=== PATIENT | female | born 1965 | race Caucasian/White ===

== ENCOUNTER 2017-01-03 17:18 | Emergency (ER) | payer OTHER ==
[2017-01-03] MEDS ORDERED: Albuterol 2.5 MG/3 ML NEB.SOL* (0.083%) INH ONE (18:11)
--- NOTE | 2017-01-03 18:25 | UC ---
Respiratory Complaint HPI - HPI Summary HPI Summary: Nasal congestion, cough, painful/tight breathing starting about a week ago. Is feeling worse, had fever of 104F yesterday. - History of Current Complaint Chief Complaint: UCRespiratory Stated Complaint: COUGH CONGESTION FEVER Time Seen by Provider: 01/03/17 18:01 Hx Obtained From: Patient Hx Last Menstrual Period: 08/16/15 ?: No Onset/Duration: Gradual Onset, Lasting Days Timing: Constant Severity Initially: Mild Severity Currently: Moderate Character: Cough: Nonproductive Aggravating Factors: Deep Breaths, Recumbent Position Alleviating Factors: Upright Position Associated Signs And Symptoms: Positive: Dyspnea, Fever, Chills, Wheezing, URI, Nasal Congestion - Allergies/Home Medications Allergies/Adverse Reactions: Allergies Allergy/AdvReac Type Severity Reaction Status Date / Time Hydrocodone [From Vicodin] Allergy Hives Verified 11/02/16 09:53 Oxycodone [From Percocet] Allergy Hives Verified 11/02/16 09:53 Gabapentin AdvReac Dizziness Verified 11/02/16 09:53 PMH/Surg Hx/FS Hx/Imm Hx Previously Healthy: Yes - Surgical History Surgical History: Yes Surgery Procedure, Year, and Place: c-sectionx2. tonsilectomy - Family History Known Family History: Positive: Hypertension - Social History Lives: With Family Alcohol Use: None Substance Use Type: None Substance Use Comment - Amount & Last Used: tylenol #4 and soma Smoking Status (MU): Former Smoker Type: Cigarettes When Did the Patient Quit Smoking/Using Tobacco: 2006 Household Exposure Type: Cigarettes Review of Systems Constitutional: Fever, Chills, Fatigue Skin: Negative Eyes: Negative ENT: Sore Throat, Nasal Discharge Respiratory: Shortness Of Breath, Cough Cardiovascular: Negative Gastrointestinal: Negative Genitourinary: Negative Motor: Negative Neurovascular: Negative Musculoskeletal: Negative Neurological: Negative Psychological: Negative All Other Systems Reviewed And Are Negative: Yes Physical Exam Triage Information Reviewed: Yes Appearance: No Pain Distress, Obese Vital Signs: Initial Vital Signs Temp 97.9 F 01/03/17 17:26 Pulse 111 01/03/17 17:26 Resp 22 01/03/17 17:26 BP 183/90 01/03/17 17:26 Pulse Ox 99 01/03/17 17:26 Vital Signs Reviewed: Yes Eye Exam: Normal Eyes: Positive: Conjunctiva Clear ENT: Positive: Pharynx normal, Nasal congestion, TMs normal. Negative: TM bulging, Tonsillar swelling, Tonsillar exudate Dental Exam: Normal Neck exam: Normal Neck: Positive: Supple, Nontender, No Lymphadenopathy Respiratory Exam: Other - harsh cough Respiratory: Positive: Accessory muscle use, Wheezing, Expiration Cardiovascular: Positive: No Murmur, Tachycardia Musculoskeletal Exam: Normal Neurological Exam: Normal Neurological: Positive: Alert Psychological Exam: Normal Skin Exam: Normal UC Diagnostic Evaluation - Laboratory O2 Sat by Pulse Oximetry: 99 Re-Evaluation - Re-Evaluation First Eval Re-Evaluation Time: 19:00 Change: Improved - markedly improved air movement, no wheezing in chest Respiratory Course/Dx - Differential Dx/Diagnosis Provider Diagnoses: acute bronchitis. elevated blood pressure due to discomfort Discharge - Discharge Plan Condition: Stable Disposition: HOME
--- NOTE | 2017-01-03 19:00 | RAD ---
INDICATION: Cough. Fever. COMPARISON: None TECHNIQUE: PA and lateral dual-energy views were obtained. FINDINGS: Bones/Soft Tissues: There are no acute bony findings. Cardiomediastinal: The cardiomediastinal silhouette is normal. Lungs: There are no infiltrates. Pleura: There are no pleural effusions. Other: None IMPRESSION: NO ACTIVE DISEASE
[2017-01-03 19:27] VITALS: BP 167/79
== END 2017-01-03 19:24 | disposition home or self-care (01) ==
LOC: UCEAST 17:18
DX: J20.9 Acute bronchitis, unspecified (principal); R03.0 Elevated blood-pressure reading, without diagnosis of hypertension; Z88.5 Allergy status to narcotic agent; Z87.891 Personal history of nicotine dependence
CPT/HCPCS: 71020; 99212; G0463

== ENCOUNTER 2018-07-11 07:47 | Emergency (ER) | payer OTHER ==
[2018-07-11 08:01] VITALS: BP 161/80
--- NOTE | 2018-07-11 08:50 | UC ---
General HPI - HPI Summary HPI Summary: This is a 53 year old female with a chief complaint of nausea/vomiting and temperature beginning 7 hours ago. PAIN INTENSITY NOW: slight abdominal discomfort COURSE: same for 7 hours; no vomiting for 2 hours QUALITY:mild, crampy LOCATION: mid and upper abdomin MADE WORSE BY: food, drink RELIEVED BY: nothing Note: Nurses note: pt states she woke up this am at 0200 with nausea and began to vomit. pt states she has been vomiting every hour this am. pt has been drinking immediatly after vomiting. pt states she had a temp of 102. pt also c/o miramontes to the front of head and the top back of her head. [ End ] - History of Current Complaint Chief Complaint: UCRespiratory Stated Complaint: ELEVATED TEMP Time Seen by Provider: 07/11/18 08:48 Hx Last Menstrual Period: 08/16/15 Pain Intensity: 7 - Allergy/Home Medications Allergies/Adverse Reactions: Allergies Allergy/AdvReac Type Severity Reaction Status Date / Time gabapentin Allergy Dizziness Verified 07/11/18 08:01 hydrocodone Allergy Hives Verified 07/11/18 08:01 oxycodone Allergy Hives Verified 07/11/18 08:01 Home Medications: Home Medications Cholecalciferol TAB* [Vitamin D TAB*] 1,000 unit PO DAILY 07/11/18 [History Confirmed 07/11/18] Ferrous Gluconate [Iron 27] 240 mg PO 07/11/18 [History] Multivitamin [Multivitamins] 1 cap PO 07/11/18 [History] PMH/Surg Hx/FS Hx/Imm Hx - Additional Past Medical History Additional PMH: VISIT HISTORY: chronic pain, back pain; migraine; a fib MEDICATIONS: no antihypertensive meds Family history significant for: -cardiovascular disease: HTN SMOKING: neg ALCOHOL: neg EMPLOYMENT: homemaker Previously Healthy: Yes - Surgical History Surgical History: Yes Surgery Procedure, Year, and Place: c-sectionx2. tonsilectomy - Family History Known Family History: Positive: Hypertension - Social History Alcohol Use: None Substance Use Type: None Substance Use Comment - Amount & Last Used: tylenol #4 and soma Smoking Status (MU): Former Smoker Type: Cigarettes When Did the Patient Quit Smoking/Using Tobacco: 2005 Household Exposure Type: Cigarettes Review of Systems All Other Systems Reviewed And Are Negative: Yes Constitutional: Positive: Negative Skin: Positive: Negative Eyes: Positive: Negative ENT: Positive: Negative Respiratory: Positive: Negative Cardiovascular: Positive: Negative Gastrointestinal: Positive: Vomiting, Nausea Genitourinary: Positive: Negative Motor: Positive: Negative Neurovascular: Positive: Negative Musculoskeletal: Positive: Negative Neurological: Positive: Negative Psychological: Positive: Negative Is Patient Immunocompromised?: No Physical Exam - Summary Physical Exam Summary: Appearance: The patient is well-appearing, is in no pain or distress, and is well-nourished. Eyes: Conjunctiva are clear. Pupils are equal and reactive to light and accommodation. Extra ocular muscle movement is intact. ENT: The hearing is grossly normal, the pharynx is normal, and the TMs are normal. There is no muffled or hoarse voice. No stridor. Neck: The neck is supple and there is no lymphadenopathy. Respiratory: The chest is nontender to palpation and without crepitus. The lungs are clear, there are normal breath sounds, and there is no respiratory distress. No wheezes, rales or rhonchi. Cardiovascular: Heart sounds reveal a regular rate and rhythm. There are no clicks, rubs or murmurs. There are no carotid bruits or thrills. Circulation is grossly intact. Abdomen: The abdomen is soft and nontender. There is no organomegaly. Bowel sounds are present and within normal limits. No point tenderness at McBurneys point. Musculoskeletal: Strength is intact. The patient moves all extremities. Neurological: The patient is alert. Motor and sensory are examination grossly intact. Speech is normal. Psychological: The patient displays age appropriate behavior Skin: Negative for rashes. Triage Information Reviewed: Yes Vital Signs: Initial Vital Signs Temp 99.3 F 07/11/18 07:55 Pulse 119 07/11/18 07:55 Resp 18 07/11/18 07:55 BP 161/80 07/11/18 07:55 Pulse Ox 97 07/11/18 07:55 Course/Dx - Course Course Of Treatment: 53 yo with frequent/nausea vomiting up to 2 hours ago. No N/V in CCC. No abdominal pain. Examination reveals no peritoneal signs. Maybe the beginning of gastroenteritis with diarrhea developing. Patient will use Zofran as needed and hydrate. She is probably mildly dehydrated with pulse of 119. MEDICATIONS REVIEWED: Medications have been included in the original chart and reviewed. HYPERTENSION REVIEWED: - Differential Dx - Multi-Symptom Differential Diagnoses: Other - gastroenteritis - Diagnoses Provider Diagnosis: Gastroenteritis Discharge - Sign-Out/Discharge Documenting (check all that apply): Patient Departure All imaging exams completed and their final reports reviewed: No Studies - Discharge Plan Condition: Stable Disposition: HOME Prescriptions: Ondansetron ODT TAB* [Zofran Odt TAB*] 4 mg PO Q6H #10 tab.odt MDD 3 Patient Education Materials: Acute Nausea and Vomiting (ED) Referrals: No Primary Care Phys,NOPCP [Primary Care Provider] - Additional Instructions: WE DISCUSSED: PLEASE SEEK CARE AT THE EMERGENCY DEPARTMENT IF SYMPTOMS WORSEN OR IF NEW SYMPTOMS DEVELOP. FOLLOW UP WITH YOUR PRIMARY CARE PHYSICIAN or HERE IF CONDITION CONTINUES BEYOND 3 DAYS WITHOUT IMPROVEMENT. YOUR DIAGNOSIS IS: NAUSEA AND VOMITING; POSSIBLE GASTROENTERITIS YOUR PRESCRIPTION RECOMMENDATION IS: ZOFRAN TO HELP WITH THE NAUSEA; BENADRYL, OVER THE COUNTER, MAY ALSO HELP OTHER INSTRUCTIONS: Hydrate with flat soda or dilute gatorade; rest; simplify diet to tea, toast, no dairy, meat, fried foods for 24 hours. Rest your stomach. Hypertension Discharge Instructions: Your blood pressure reading today was elevated, indicating HYPERTENSION. Follow- up with your primary care provider within 4 weeks for blood pressure check and appropriate recommendations and treatment, as needed. FOR PAIN AND/OR SLEEP: For pain: Ibuprofen (Motrin and other brand names) 400-600mg PLUS acetaminophen (Tylenol and other brand names) 500mg - 1000mg every 8 hours. Maximum is 3 doses a day. If this dosage is required for more than 5 days, you should re-check with your doctor. The combination of these two over-the- counter medications can be more effective than each one taken alone. Please check with the pharmacist if you have questions about your allergies to these medications. To help you sleep: If you feel as if you want to calm down and get sleepy, over the counter diphenhydramine (Benadryl and other brand names), 25 mg up to every 8 hours may be useful. Please check with the pharmacist if you have questions about your allergies to these medications. - Billing Disposition and Condition Condition: STABLE Disposition: Home
== END 2018-07-11 09:30 | disposition home or self-care (01) ==
LOC: UCEAST 07:47
DX: K52.9 Noninfective gastroenteritis and colitis, unspecified (principal); Z88.5 Allergy status to narcotic agent; Z88.8 Allergy status to other drugs, medicaments and biological substances; Z87.891 Personal history of nicotine dependence
CPT/HCPCS: 99212; G0463

== ENCOUNTER 2018-07-12 15:58 | Emergency (ER) | payer OTHER ==
[2018-07-12 16:06] VITALS: BP 146/83
--- NOTE | 2018-07-12 16:47 | UC ---
Respiratory Complaint HPI - HPI Summary HPI Summary: 53-year-old woman comes to clinic today with a chief complaint of coughing up blood. Yesterday the patient had nausea and vomiting all day and through the night. When she woke up this morning she had some upper abdominal lower chest discomfort and when she coughed up some sputum he was tinged with blood. Denies any sinusitis symptoms. Did not see any blood in her emesis yesterday. She has not seen any blood in her stool. He says the nausea and vomiting yesterday she has felt well. No upper respiratory tract infection symptoms. No history of deep venous thrombosis or pulmonary embolus. She is not a smoker. No fevers or chills. - History of Current Complaint Chief Complaint: UCRespiratory Stated Complaint: RIB PAIN Time Seen by Provider: 07/12/18 16:31 Hx Last Menstrual Period: 2 wks ago Pain Intensity: 0 - Allergies/Home Medications Allergies/Adverse Reactions: Allergies Allergy/AdvReac Type Severity Reaction Status Date / Time gabapentin Allergy Dizziness Verified 07/12/18 16:06 hydrocodone Allergy Hives Verified 07/12/18 16:06 oxycodone Allergy Hives Verified 07/12/18 16:06 Home Medications: Home Medications Acetaminop/Codeine 30 MG TAB* [Tylenol/Codeine 30 MG TAB*] 2 tab PO ONCE [History Confirmed 07/12/18] PMH/Surg Hx/FS Hx/Imm Hx Previously Healthy: Yes - CHRONIC BACK PAIN - Surgical History Surgical History: Yes Surgery Procedure, Year, and Place: c-sectionx2. tonsilectomy - Family History Known Family History: Positive: Hypertension - Social History Alcohol Use: None Substance Use Type: Prescribed Substance Use Comment - Amount & Last Used: tylenol #4 and soma Smoking Status (MU): Former Smoker Type: Cigarettes When Did the Patient Quit Smoking/Using Tobacco: 2005 Household Exposure Type: Cigarettes Review of Systems All Other Systems Reviewed And Are Negative: Yes Constitutional: Positive: Negative Skin: Positive: Negative Eyes: Positive: Negative ENT: Positive: Negative Respiratory: Positive: Other - SEE HPI Cardiovascular: Positive: Chest Pain - SEE HPI Gastrointestinal: Positive: Vomiting - SEE HPI Motor: Positive: Negative Neurovascular: Positive: Negative Musculoskeletal: Positive: Negative Neurological: Positive: Negative Psychological: Positive: Negative Is Patient Immunocompromised?: No Physical Exam Triage Information Reviewed: Yes Appearance: Well-Appearing, No Pain Distress, Well-Nourished Vital Signs: Initial Vital Signs Temp 98.3 F 07/12/18 16:03 Pulse 94 07/12/18 16:03 Resp 16 07/12/18 16:03 BP 146/83 07/12/18 16:03 Pulse Ox 99 07/12/18 16:03 Vital Signs Reviewed: Yes Eye Exam: Normal Eyes: Positive: Conjunctiva Clear ENT: Positive: Pharynx normal Neck exam: Normal Neck: Positive: Supple Respiratory: Positive: Lungs clear, Normal breath sounds, No respiratory distress Cardiovascular: Positive: RRR Abdomen Description: Positive: Nontender, Soft Musculoskeletal Exam: Normal Musculoskeletal: Positive: Strength Intact, ROM Intact, No Edema, Other: - NO CALF TENDERNESS Neurological Exam: Normal Neurological: Positive: Alert, Muscle Tone Normal Psychological Exam: Normal Psychological: Positive: Age Appropriate Behavior Skin Exam: Normal UC Diagnostic Evaluation - Laboratory O2 Sat by Pulse Oximetry: 99 Respiratory Course/Dx - Course Course Of Treatment: Order Information: CHEST PA LAT 2 VWS. Accession Number: [id number]. CPT: 11152. INDICATION: Hemoptysis. COMPARISON: Comparison is made with prior study from January 03, 2017. TECHNIQUE: Dual-energy PA and lateral views of the chest were obtained. FINDINGS: The heart is within normal limits in size. Mediastinal and hilar contours. appear within normal limits. The lungs are clear. No pleural effusion is present. IMPRESSION: NO EVIDENCE FOR ACTIVE CARDIOPULMONARY DISEASE. . <Electronically signed by Pancho Reid MD in OV> 07/12/18 3413. I discussed the reports with the patient and her partner. At this time we'll treat with Roel azithromycin for probable bronchitis causing the hemoptysis. Given the patient had a little vomiting yesterday another highly probable cause is a tear in the upper throat. Patient has not seen any blood in her stools. She also has been taking ibuprofen and I recommended she stop taking ibuprofen for now. She's not short of breath at rest. She has an appointment with a new doctor on July 26, 2018 and she can follow-up at that time for this condition. I also let her know if she has any shortness of breath or she has any increased hemoptysis she needs to get evaluated again right away in the emergency department. - Differential Dx/Diagnosis Provider Diagnosis: Hemoptysis Discharge - Sign-Out/Discharge Documenting (check all that apply): Patient Departure All imaging exams completed and their final reports reviewed: Yes - Discharge Plan Condition: Stable Disposition: HOME Prescriptions: Azithromyxin CHIN (NF) [Z-Chin (Zithromax) 250 mg tabs #6] 2 tab PO .TODAY, THEN 1 DAILY #6 tab Patient Education Materials: Hemoptysis (ED) Referrals: [facility] [place] [facility] [Outside] [facility] [Provider Group] Additional Instructions: FOLLOW UP WITH YOUR DOCTOR ON 07/26/18 SCHEDULED. GO TO THE EMERGENCY DEPARTMENT FOR ANY WORSENING OF YOUR CONDITION; PAIN, SHORTNESS OF BREATH, CONTINUED OR MORE BLOOD IN YOUR SPUTUM, YOU FEEL ILL OR QUESTIONS OR CONCERNS. - Billing Disposition and Condition Condition: STABLE Disposition: Home
== END 2018-07-12 17:35 | disposition home or self-care (01) ==
LOC: UCEAST 15:58
DX: R04.2 Hemoptysis (principal); Z88.5 Allergy status to narcotic agent; Z88.8 Allergy status to other drugs, medicaments and biological substances; Z87.891 Personal history of nicotine dependence
CPT/HCPCS: 71046; 99212; G0463

== ENCOUNTER 2018-07-15 17:05 | Emergency (ER) | payer OTHER ==
[2018-07-15] MEDS ORDERED: amLODIPine TAB* 5 MG PO ONE (18:00)
[2018-07-15] MEDS ORDERED: Hydrochlorothiazide TAB* 25 MG PO ONE (18:00)
[2018-07-15 18:26] LABS: ABS Basophils 0 10^3/ul (0-0.2); ABS Eosinophils 0.1 10^3/ul (0-0.6); ABS Lymphocytes 1.2 10^3/ul (1.0-4.8); ABS Monocytes 0.3 10^3/ul (0-0.8); ABS Nucleated RBC 0 10^3/ul; Eosinophil % 1.7 %; Hematocrit 36 % (35-47); Hemoglobin 11.6 g/dl (12.0-16.0); Lymphocyte % 25.7 %; Mean Corpuscular HGB Conc 32 g/dl (31-36); Mean Corpuscular Hemoglobin 26 pg (27-31); Mean Corpuscular Volume 79 fL (80-97); Mean Platelet Volume 8.8 fL (7.4-10.4); Nucleated Red Blood Cells % 0; Platelet Count 134 10^3/ul (150-450); Red Cell Distribution Width 18 % (10.5-15); White Blood Count 4.6 10^3/ul (3.5-10.8)
[2018-07-15 18:42] LABS: EGFR Non-African American 87.2 (>60)
--- NOTE | 2018-07-15 19:19 | ED ---
Lower Extremity - HPI Summary HPI Summary: 53 year old female presents with sudden onset right calf pain that is radiating up her leg and buttock. Patient states the pain feels "like she pulled a muscle. " Patient has a family history of blood clots and is concerned she may have a blood clot. Patient states she took ibuprofen and Tylenol with codeine without relief. Patient denies CP, SOB, N/V, dizziness, abdominal pain, diarrhea, constipation, and diarrhea. Patient has a history of high blood pressure, is not any any medications to treat it. Does not have a PCP. Denies cigarette, alcohol, and recreational drug use. no urinary symptoms. no loss of bowel or bladder or saddle anasethesia. She admits to some right side back pain. - History of Current Complaint Chief Complaint: EDExtremityLower Stated Complaint: RT LEG PAIN Time Seen by Provider: 07/15/18 17:44 Hx Obtained From: Patient Hx Last Menstrual Period: 2 wks ago Onset/Duration: Hours Severity Initially: Moderate Severity Currently: Severe Pain Intensity: 9 Pain Scale Used: 0-10 Numeric Location: Radiates To - right calf with radiation up right leg and buttock Character Of Pain: Dull, Aching Associated Signs And Symptoms: Positive: Negative Aggravating Factor(s): Nothing Alleviating Factor(s): Rest Able to Bear Weight: Yes - Risk Factors Gout Risk Factors: Age Over 40, Hypertension, Obesity DVT Risk Factors: Family Hx of Clotting Disorder Septic Arthritis Risk Factor: Negative - Allergies/Home Medications Allergies/Adverse Reactions: Allergies Allergy/AdvReac Type Severity Reaction Status Date / Time gabapentin Allergy Dizziness Verified 07/15/18 17:11 hydrocodone Allergy Hives Verified 07/15/18 17:11 oxycodone Allergy Hives Verified 07/15/18 17:11 PMH/Surg Hx/FS Hx/Imm Hx Previously Healthy: Yes Endocrine/Hematology History: Denies: Hx Diabetes, Hx Thyroid Disease Cardiovascular History: Reports: Hx Hypertension Respiratory History: Reports: Other Respiratory Problems/Disorders Denies: Hx Asthma, Hx Chronic Obstructive Pulmonary Disease (COPD) GI History: Denies: Hx Ulcer Musculoskeletal History: Reports: Hx Back Problems Neurological History: Reports: Hx Headaches - Cancer History Hx Chemotherapy: No Hx Radiation Therapy: No - Surgical History Surgery Procedure, Year, and Place: c-sectionx2. tonsilectomy Infectious Disease History: No Infectious Disease History: Denies: Hx Clostridium Difficile, Hx Hepatitis, Hx Human Immunodeficiency Virus (HIV), Hx of Known/Suspected MRSA, Hx Shingles, Hx Tuberculosis, Hx Known/ Suspected VRE, Hx Known/Suspected VRSA, History Other Infectious Disease, Traveled Outside the [place] in Last 30 Days - Family History Known Family History: Positive: Hypertension - Social History Alcohol Use: None Substance Use Type: Reports: Prescribed Substance Use Comment - Amount & Last Used: tylenol #4 and soma Hx Tobacco Use: No Smoking Status (MU): Former Smoker Type: Cigarettes Review of Systems Negative: Fever, Chills, Fatigue, Skin Diaphoresis Negative: Palpitations, Chest Pain Negative: Shortness Of Breath Negative: Abdominal Pain, Vomiting, Diarrhea, Nausea Positive: Myalgia - pain in right leg Negative: Headache, Weakness, Paresthesia, Numbness All Other Systems Reviewed And Are Negative: Yes Physical Exam Triage Information Reviewed: Yes Vital Signs On Initial Exam: Initial Vitals Temp Pulse Resp BP Pulse Ox 97.7 F 107 16 202/113 99 07/15/18 17:08 07/15/18 17:08 07/15/18 17:08 07/15/18 17:08 07/15/18 17:08 Vital Signs Reviewed: Yes Appearance: Positive: Well-Appearing Skin: Positive: Warm, Dry Head/Face: Positive: Normal Head/Face Inspection Eyes: Positive: Normal, Conjunctiva Clear ENT: Positive: Pharynx normal Respiratory/Lung Sounds: Positive: Clear to Auscultation, Breath Sounds Present Cardiovascular: Positive: Normal, RRR Musculoskeletal: Positive: Strength/ROM Intact - right leg, Other - nontender SI joint, no midline tenderness back, good pulses, sensation grossly intact Neurological: Positive: Reflexes Intact - patella Psychiatric: Positive: Normal Diagnostics - Vital Signs Vital Signs Temp Pulse Resp BP Pulse Ox 07/15/18 17:08 97.7 F 107 16 202/113 99 - Laboratory Lab Results: Lab Results 07/15/18 07/15/18 Range/Units 18:04 18:04 WBC 4.6 (3.5-10.8) 10^3/ul RBC 4.50 (4.00-5.40) 10^6/ul Hgb 11.6 L (12.0-16.0) g/dl Hct 36 (35-47) % MCV 79 L (80-97) fL MCH 26 L (27-31) pg MCHC 32 (31-36) g/dl RDW 18 H (10.5-15) % Plt Count 134 L (150-450) 10^3/ul MPV 8.8 (7.4-10.4) fL Neut % (Auto) 65.4 % Lymph % (Auto) 25.7 % [place] % (Auto) 6.7 % Eos % (Auto) 1.7 % Baso % (Auto) 0.5 % Absolute Neuts (auto) 3.0 (1.5-7.7) 10^3/ul Absolute Lymphs (auto) 1.2 (1.0-4.8) 10^3/ul Absolute Monos (auto) 0.3 (0-0.8) 10^3/ul Absolute Eos (auto) 0.1 (0-0.6) 10^3/ul Absolute Basos (auto) 0 (0-0.2) 10^3/ul Absolute Nucleated RBC 0 10^3/ul Nucleated RBC % 0 Sodium 137 (135-145) mmol/L Potassium 3.7 (3.5-5.0) mmol/L Chloride 104 (101-111) mmol/L Carbon Dioxide 26 (22-32) mmol/L Anion Gap 7 (2-11) mmol/L BUN 11 (6-24) mg/dL Creatinine 0.70 (0.51-0.95) mg/dL Est GFR ( Amer) 105.5 (>60) Est GFR (Non-Af Amer) 87.2 (>60) BUN/Creatinine Ratio 15.7 (8-20) Glucose 95 (70-100) mg/dL Calcium 9.2 (8.6-10.3) mg/dL Magnesium 2.1 (1.9-2.7) mg/dL Total Bilirubin 0.30 (0.2-1.0) mg/dL AST 13 (13-39) U/L ALT 19 (7-52) U/L Alkaline Phosphatase 66 (34-104) U/L Total Protein 7.3 (6.4-8.9) g/dL Albumin 4.4 (3.2-5.2) g/dL Globulin 2.9 (2-4) g/dL Albumin/Globulin Ratio 1.5 (1-3) Result Diagrams: 12/09/18 18:04 07/15/18 18:04 Lab Statement: Any lab studies that have been ordered have been reviewed, and results considered in the medical decision making process. - Ultrasound No standard instances Ultrasound Interpretation Completed By: Radiologist Summary of Ultrasound Findings: no DVT Re-Evaluation - Re-Evaluation First Eval Re-Evaluation Time: 19:45 Change: Improved Comment: feeling better after blood pressure meds Lower Extremity Course/Dx - Course Course Of Treatment: 53 year old female presents with right calf pain and radiation up the leg and buttock. Patient has a family history of blood clots and is concerned she may have one. Denies swelling of leg, CP/SOB, and numbness or tingling. Patient has history of uncontrolled HTN, does not see a PCP but has an appointment on the . Patient was given a dose of HCTZ and amlodipine in ED. Venous ultrasound of the right leg was done and shows no thrombus. Patient given prescription for amlodipine for blood pressure control and a muscle relaxer for pain management. Patient instructed to follow up with PCP as scheduled for continued management. Patient demonstrates understanding and is agreeable to plan. - Diagnoses Differential Diagnosis/HQI/PQRI: Positive: DVT, Sprain, Strain Provider Diagnoses: Hypertension, Right leg pain Discharge - Sign-Out/Discharge Documenting (check all that apply): Patient Departure - Discharge Plan Condition: Good Disposition: HOME Prescriptions: amLODIPine TAB* [Norvasc 5 mg TAB*] 5 mg PO DAILY #20 tab Cyclobenzaprine TAB* [Flexeril 10 MG TAB*] 10 mg PO TID PRN #15 tab PRN Reason: Pain Patient Education Materials: Leg Pain (ED) Referrals: [facility] [place] [facility] [Outside] Additional Instructions: take amlodipine once a day Take muscle relaxers three times a day Use ibuprofen or Tylenol for pain every 6 hours ice/heat area, move as much as possible keep follow up with primary Return to ED if develop any new or worsening symptoms - Billing Disposition and Condition Condition: GOOD Disposition: Home
[2018-07-15] MEDS ORDERED: Cyclobenzaprine TAB* 10 MG PO ONE (19:44)
[2018-07-15 19:56] VITALS: BP 186/102
== END 2018-07-15 20:00 | disposition home or self-care (01) ==
LOC: ED 17:05
DX: M79.604 Pain in right leg (principal); I10 Essential (primary) hypertension; Z87.891 Personal history of nicotine dependence
CPT/HCPCS: 36415; 80053; 83735; 85025; 99282; A9270-GY

== ENCOUNTER 2018-09-01 07:36 | Emergency (ER) | payer OTHER ==
[2018-09-01 07:57] VITALS: BP 160/90
--- NOTE | 2018-09-01 07:58 | UC ---
General HPI - HPI Summary HPI Summary: 53 yo healthy female, comes to [facility] for refill of amlodipine and something for cholesterol. MD Note: Vital signs stable; HTN Nurses note: pt is here for a refill of amlodipine besylate 5mg 1 tab po q day. pt last time taking this med 8 days ago. pt is also asking for her colesterol medication that she does not remember at this time. I stop: Reference #: [id number] No frequent drugs listed. - History of Current Complaint Chief Complaint: UCMedRefill Stated Complaint: MED REFILL Time Seen by Provider: 09/01/18 07:47 Hx Last Menstrual Period: 07/28/18 Pain Intensity: 0 - Allergy/Home Medications Allergies/Adverse Reactions: Allergies Allergy/AdvReac Type Severity Reaction Status Date / Time gabapentin Allergy Dizziness Verified 07/15/18 17:11 hydrocodone Allergy Hives Verified 07/15/18 17:11 oxycodone Allergy Hives Verified 07/15/18 17:11 PMH/Surg Hx/FS Hx/Imm Hx - Additional Past Medical History Additional PMH: RELEVANT VISIT HISTORY: HTN MEDICATIONS: amlodipine CHRONIC CONDITIONS: Family history significant for: -cardiovascular disease: hypertension -renal disease SMOKING: none EMPLOYMENT: at home - Surgical History Surgical History: Yes Surgery Procedure, Year, and Place: c-sectionx2. tonsilectomy - Family History Known Family History: Positive: Hypertension - Social History Alcohol Use: None Substance Use Type: None Substance Use Comment - Amount & Last Used: tylenol #4 and soma Smoking Status (MU): Former Smoker Type: Cigarettes When Did the Patient Quit Smoking/Using Tobacco: 2005 Household Exposure Type: Cigarettes Review of Systems All Other Systems Reviewed And Are Negative: Yes Constitutional: Positive: Negative Skin: Positive: Negative Eyes: Positive: Negative ENT: Positive: Negative Respiratory: Positive: Negative Cardiovascular: Positive: Negative Gastrointestinal: Positive: Negative Genitourinary: Positive: Negative Motor: Positive: Negative Neurovascular: Positive: Negative Musculoskeletal: Positive: Negative Neurological: Positive: Negative Psychological: Positive: Negative Is Patient Immunocompromised?: No Physical Exam - Summary Physical Exam Summary: Appearance: The patient is well-appearing, is in no pain or distress, and is well-nourished. Eyes: Conjunctiva are clear. Pupils are equal and reactive to light and accommodation. Extraocular muscle movement is intact. ENT: The hearing is grossly normal, the pharynx is normal, and the TMs are normal. There is no muffled or hoarse voice. No stridor. Neck: The neck is supple and there is no lymphadenopathy. Respiratory: The chest is non-tender to palpation and without crepitus. The lungs are clear, there are normal breath sounds, and there is no respiratory distress. No wheezes, rales or rhonchi. Cardiovascular: Heart sounds reveal a regular rate and rhythm. There are no clicks, rubs or murmurs. There are no carotid bruits or thrills. Circulation is grossly intact. Abdomen: The abdomen is soft and non-tender. There is no organomegaly. Bowel sounds are present and within normal limits. No point tenderness at McBurneys point. Musculoskeletal: Strength is within normal limits for age. The patient moves all extremities spontaneously. Neurological: The patient is alert. Motor and sensory examination grossly intact. Speech is normal. Psychological: The patient displays age appropriate behavior. Oriented to person , place and time. Skin: Negative for rashes. Triage Information Reviewed: Yes Vital Signs: Initial Vital Signs Temp 97.4 F 09/01/18 07:40 Pulse 102 09/01/18 07:40 Resp 18 09/01/18 07:40 BP 00/00 09/01/18 07:40 Pulse Ox 98 09/01/18 07:40 Course/Dx - Course Course Of Treatment: 53 yo healthy patient with chronic hypertension and BP of 160/90, ran out of amlodipine 8 days ago. Patient will find primary care, check cholesterol, and restart amlodipine, 5mg, once a day. We discussed adverse effects. 60 pills given. MEDICATIONS REVIEWED: Medications have been included in the original chart and reviewed. HYPERTENSION STATUS/MEDICATIONS REVIEWED and DISCUSSED WITH PATIENT. - Differential Dx - Multi-Symptom Differential Diagnoses: Other - hypertension - Diagnoses Provider Diagnosis: Hypertension Discharge - Sign-Out/Discharge Documenting (check all that apply): Patient Departure All imaging exams completed and their final reports reviewed: No Studies - Discharge Plan Condition: Stable Disposition: HOME Prescriptions: Amlodipine Besylate [Norvasc] 5 mg PO DAILY #60 tablet MDD one Patient Education Materials: Chronic Hypertension (DC) Referrals: No Primary Care Phys,NOPCP [Primary Care Provider] - Additional Instructions: WE DISCUSSED: Follow up with your new care provider. Evaluate and treat cholesterol at that time. PLEASE SEEK CARE AT THE EMERGENCY DEPARTMENT IF SYMPTOMS WORSEN OR IF NEW SYMPTOMS DEVELOP. YOUR DIAGNOSIS IS: chronic hypertension I have given you AMLODIPINE 5 MG A DAY # 60. - Billing Disposition and Condition Condition: STABLE Disposition: Home
== END 2018-09-01 08:35 | disposition home or self-care (01) ==
LOC: UCEAST 07:36
DX: I10 Essential (primary) hypertension (principal); Z76.0 Encounter for issue of repeat prescription; Z88.8 Allergy status to other drugs, medicaments and biological substances; Z88.5 Allergy status to narcotic agent; Z82.49 Family history of ischemic heart disease and other diseases of the circulatory system; Z87.891 Personal history of nicotine dependence
CPT/HCPCS: 99212; G0463

== ENCOUNTER 2018-09-24 10:35 | Emergency (ER) | payer OTHER ==
[2018-09-24 11:36] VITALS: BP 191/110
--- NOTE | 2018-09-24 12:17 | ED ---
Respiratory - HPI Summary HPI Summary: 53 year old female presents with fever and cough for the past 4 days. she admits to sinus congestion and occasionally sore throat. she has not tried any thing for her symptoms. she admits to occasionally sob. no chest pain. no pain or swelling in her calf muscles. is not a smoker. has history of HTN And has not taken meds in two days due to nausea. no abdominal pain, vomiting or diarrhea. no history of asthma or COPD. - History of Current Complaint Chief Complaint: UCGeneralIllness Stated Complaint: FEVER,COUGH Time Seen by Provider: 09/24/18 12:02 Pain Intensity: 8 - Allergy/Home Medications Allergies/Adverse Reactions: Allergies Allergy/AdvReac Type Severity Reaction Status Date / Time gabapentin Allergy Dizziness Verified 09/24/18 11:36 hydrocodone Allergy Hives Verified 09/24/18 11:36 oxycodone Allergy Hives Verified 09/24/18 11:36 PMH/Surg Hx/FS Hx/Imm Hx Endocrine/Hematology History: Denies: Hx Diabetes, Hx Thyroid Disease Cardiovascular History: Reports: Hx Hypertension Respiratory History: Reports: Other Respiratory Problems/Disorders Denies: Hx Asthma, Hx Chronic Obstructive Pulmonary Disease (COPD) GI History: Denies: Hx Ulcer Musculoskeletal History: Reports: Hx Back Problems Neurological History: Reports: Hx Headaches - Cancer History Hx Chemotherapy: No Hx Radiation Therapy: No - Surgical History Surgery Procedure, Year, and Place: c-sectionx2. tonsilectomy Infectious Disease History: No Infectious Disease History: Denies: Hx Clostridium Difficile, Hx Hepatitis, Hx Human Immunodeficiency Virus (HIV), Hx of Known/Suspected MRSA, Hx Shingles, Hx Tuberculosis, Hx Known/ Suspected VRE, Hx Known/Suspected VRSA, History Other Infectious Disease, Traveled Outside the [place] in Last 30 Days - Family History Known Family History: Positive: Hypertension - Social History Alcohol Use: None Substance Use Type: Reports: None Substance Use Comment - Amount & Last Used: tylenol #4 and soma Hx Tobacco Use: No Smoking Status (MU): Former Smoker Type: Cigarettes Review of Systems Positive: Fever, Chills Positive: Nasal Discharge Negative: Chest Pain Positive: Shortness Of Breath, Cough All Other Systems Reviewed And Are Negative: Yes Physical Exam Triage Information Reviewed: Yes Vital Signs On Initial Exam: Initial Vitals Temp Pulse Resp BP Pulse Ox 100.1 F 112 18 191/110 100 09/24/18 11:32 09/24/18 11:32 09/24/18 11:32 09/24/18 11:32 09/24/18 11:32 Vital Signs Reviewed: Yes Appearance: Positive: Well-Appearing Skin: Positive: Warm, Dry Head/Face: Positive: Normal Head/Face Inspection Eyes: Positive: Normal, EOMI, QUIN, Conjunctiva Clear ENT: Positive: Normal ENT inspection, Pharynx normal, Nasal drainage, TMs normal Neck: Positive: Supple, Nontender, No Lymphadenopathy Respiratory/Lung Sounds: Positive: Clear to Auscultation, Breath Sounds Present Cardiovascular: Positive: Normal, RRR Abdomen Description: Positive: Nontender, Soft Bowel Sounds: Positive: Present Musculoskeletal: Positive: Normal Neurological: Positive: Normal Psychiatric: Positive: Normal Diagnostics - Vital Signs Vital Signs Temp Pulse Resp BP Pulse Ox 09/24/18 11:32 100.1 F 112 18 191/110 100 - Laboratory Lab Statement: Any lab studies that have been ordered have been reviewed, and results considered in the medical decision making process. - Radiology chest Radiology Interpretation Completed By: Radiologist Summary of Radiographic Findings: nad Disposition - Course Course Of Treatment: 53 year old female presents with fever and cough for the past 4 days. she admits to sinus congestion and occasionally sore throat. she has not tried any thing for her symptoms. she admits to occasionally sob. no chest pain. no pain or swelling in her calf muscles. is not a smoker. has history of HTN And has not taken meds in two days due to nausea. no abdominal pain, vomiting or diarrhea. no history of asthma or COPD. on exam lungs CTA. pharynx normal. chest xray shows no pneumonia. will treat supportively with inhaler and tessalon. patient can follow up with primary about blood pressure as has dx of htn and has not been taking meds. encouraged that needs to take bp meds. patient understand and agrees with plan. - Differential Dx - Cardiopulmonary Differential Diagnoses - Cardiopulmonary: Bronchitis, Influenza, Lower Resp Infection - Diagnoses Provider Diagnoses: Upper respiratory infection, Hypertension Discharge - Sign-Out/Discharge Documenting (check all that apply): Patient Departure All imaging exams completed and their final reports reviewed: Yes - Discharge Plan Condition: Good Disposition: HOME Prescriptions: Albuterol HFA INHALER* [Ventolin HFA Inhaler*] 1 puff INH Q6H PRN #1 i PRN Reason: Cough Benzonatate CAP* [Tessalon 100 MG CAP*] 100 mg PO TID PRN #21 cap PRN Reason: Cough Patient Education Materials: Upper Respiratory Infection (ED) Referrals: [facility] [Outside] Additional Instructions: Use Tessalon three times a day for cough Use inhaler one puff every 4-6 hours for cough as needed Establish care with primary Follow up with primary care physician in 5 days Return to if develop any new or worsening symptoms - Billing Disposition and Condition Condition: GOOD Disposition: Home - Attestation Statements Provider Attestation: Per institutional requirements, I have reviewed the chart, however, I was not consulted specifically or made aware of this patient by the midlevel provider. I did not personally evaluate, interact with , or disposition this patient.
== END 2018-09-24 12:38 | disposition home or self-care (01) ==
LOC: UCEAST 10:35
DX: J06.9 Acute upper respiratory infection, unspecified (principal); I10 Essential (primary) hypertension; Z88.5 Allergy status to narcotic agent; Z88.8 Allergy status to other drugs, medicaments and biological substances; Z87.891 Personal history of nicotine dependence
CPT/HCPCS: 71046; 99212; G0463

== ENCOUNTER 2019-08-15 18:15 | Emergency (ER) | payer OTHER ==
--- OUTSIDE RECORDS SUMMARY | 2019-08-15 18:24 | XMS REPORT | Continuity of Care Document ---
:1965 External Reference #:[id number] Author Name Nusrat Schroeder MD (transmitted by agent of provider Darcy Aguilar) Address [address], [place] [address] Problems Description No Information Available Social History Type Date Description Comments Sex Unknown Tobacco Use Start: Unknown End: Unknown Patient is a former smoker quit 2004 Smoking Status Reviewed: 07/12/19 Patient is a former smoker quit 2004 Allergies, Adverse Reactions, Alerts Active Allergies Reaction Severity Comments Date Vicodin 06/27/2019 Darvocet 06/27/2019 Penicillin 06/27/2019 Inactive Allergies NKDA 06/26/2003 Medications Active Medications SIG Qnty Indications Ordering Date Provider Lisinopril 1 by mouth every 30tabs I10 Nusrat Schroeder, 07/12/2019 10mg day MD Tablets Blood Pressure Kit measure blood 1units I10 Orquidea Leach, 06/27/2019 pressure daily MD Kit Paroxetine HCL take one tab daily 60tabs F33.2 Orquidea Leach, 06/27/2019 10mg for 2 weeks and MD Tablets then 2 tab daily thereafter Ibuprofen 200 Unknown 200mg Tablets History Medications No Active Medications Unknown 06/27/2019 - 06/27/2019 Amlodipine Besylate 1 by mouth every 90tabs Nelly Camacho, 06/27/2019 - 5mg day DO 06/27/2019 Tablets Amlodipine Besylate take one tablet 60tabs I10 Orquidea Leach, 2018 - by mouth once MD 07/12/2019 10mg Tablets daily Immunizations Description No Information Available Vital Signs Date Vital Result Comment 07/12/2019 11:41am Height 66 inches 5'6" Weight 225.00 lb Heart Rate 98 /min BP Systolic 132 mmHg BP Diastolic 82 mmHg Body Temperature 97.8 F O2 % BldC Oximetry 98 % BMI (Body Mass Index) 36.3 kg/m2 06/27/2019 3:06pm Height 66 inches 5'6" Weight 222.38 lb Heart Rate 110 /min BP Systolic 179 mmHg 154/88 BP Diastolic 94 mmHg 154/88 Body Temperature 98.5 F O2 % BldC Oximetry 98 % BMI (Body Mass Index) 35.9 kg/m2 Results Description No Information Available Procedures Date Code Description Status 07/12/2019 05901 EKG Tracing & Interpretation Completed Medical Devices Description No Information Available Encounters Type Date Location Provider Dx Diagnosis Office Visit 06/27/2019 [facility] Internal Orquidea Leach, I10 Essential ( primary) 3:00p Medicine - Suite hypertension R 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, recurrent severe w/o psych features Assessments Date Code Description Provider 07/12/2019 R60.9 Edema, unspecified Nusrat Schroeder MD 07/12/2019 I10 Essential (primary) hypertension Nusrat Schroeder MD 06/27/2019 I10 Essential (primary) hypertension Orquidea Leach MD 06/27/2019 F33.2 Major depressive disorder, recurrent severe Orquidea Leach MD without psychotic features Plan of Treatment Future Appointment(s):07/18/2019 9:30 am - [facility] - Orquidea Leach MD at [facility] Internal Medicine - [address]/12/2018 - Nusrat Schroeder, MDR60.9 Edema, unspecifiedNew Labs:Basic Metabolic Panel, Ordered: 07/12/19I1 Essential (primary) hypertensionNew Medication:Lisinopril 10 mg - 1 by mouth every dayNew Labs: Basic Metabolic Panel, Ordered: 07/12/19Follow up:Nursing BP check in 1 week Be sure to follow up with PCP on 07/29 as scheduled - Please have your fasting lab work done before that time Functional Status Description No Information Available Mental Status Description No Information Available Referrals Description No Information Available
--- OUTSIDE RECORDS SUMMARY | 2019-08-15 18:24 | XMS REPORT | Continuity of Care Document ---
:1965 External Reference #:[id number] Author Name Orquidea Leach MD (transmitted by agent of provider Amira Quan) Address [address] , [place] [address] Problems Description No Information Available Social History Type Date Description Comments Sex Unknown Tobacco Use Start: Unknown End: Unknown Patient is a former smoker quit 2004 Smoking Status Reviewed: 06/27/19 Patient is a former smoker quit 2004 Allergies, Adverse Reactions, Alerts Active Allergies Reaction Severity Comments Date Vicodin 06/27/2019 Darvocet 06/27/2019 Penicillin 06/27/2019 Inactive Allergies NKDA 06/26/2003 Medications Active Medications SIG Qnty Indications Ordering Date Provider Amlodipine Besylate 1 by mouth every 90tabs Nelly Camacho, 06/27/2019 day DO 5mg Tablets Amlodipine Besylate take one tablet by 60tabs I10 Orquidea Leach, 2018 mouth once daily MD 10mg Tablets Blood Pressure Kit measure blood 1units I10 Orquidea Leach, 06/27/2019 pressure daily MD Kit Paroxetine HCL take one tab daily 60tabs F33.2 Orquidea Leach, 06/27/2019 10mg for 2 weeks and MD Tablets then 2 tab daily thereafter History Medications No Active Medications Unknown 06/27/2019 - 06/27/2019 Immunizations Description No Information Available Vital Signs Date Vital Result Comment 06/27/2019 3:06pm Height 66 inches 5'6" Weight 222.38 lb Heart Rate 110 /min BP Systolic 179 mmHg 154/88 BP Diastolic 94 mmHg 154/88 Body Temperature 98.5 F O2 % BldC Oximetry 98 % BMI (Body Mass Index) 35.9 kg/m2 08/23/2006 11:32am Height 66 inches 5'6" Weight 160.00 lb Heart Rate 67 /min BP Systolic Sitting 122 mmHg BP Diastolic Sitting 70 mmHg BP Systolic Standing 130 mmHg BP Diastolic Standing 80 mmHg Respiratory Rate 16 /min BMI (Body Mass Index) 25.8 kg/m2 Results Description No Information Available Procedures Description No Information Available Medical Devices Description No Information Available Encounters Description No Information Available Assessments Date Code Description Provider 06/27/2019 I10 Essential (primary) hypertension Orquidea Leach MD 06/27/2019 F33.2 Major depressive disorder, recurrent severe Orquidea Leach MD without psychotic features Plan of Treatment Future Appointment(s):07/29/2019 8:00 am - Orquidea Leach MD at [facility] Internal Medicine - [address]/27/2018 - Orquidea Leach MDI10 Essential (primary) hypertensionNew Medication:Amlodipine Besylate 10 mg - take one tablet by mouth once dailyBlood Pressure Kit - measure blood pressure dailyNew Labs:CBC Auto Diff, Ordered: 06/27/19Comp Metabolic Panel, Ordered: 06/27/19Lipid Profile ( Trig/Chol/HDL), Ordered: 06/27/19Hemoglobin A1c (Glyco HGB), Ordered: Comments:1. Please measure BP daily and make log of it. Give us a call if reading is >180/100 and bring the BP log on next visit.2. Take amlodipine 10 mg once tablet daily.Follow up:DAVE previous records from PCP.F33.2 Major depressive disorder, recurrent severe without psychotic featuresNew Medication: Paroxetine HCL 10 mg - take one tab daily for 2 weeks and then 2 tab daily thereafterComments:1. Take Paxil one tab daily for 2 weeks and then two tab thereafter. 2. Please go to [facility] if you feel like hurting yourself.Follow up:1 month for physical exam. Functional Status Description No Information Available Mental Status Description No Information Available Referrals Description No Information Available
[2019-08-15 18:35] VITALS: BP 145/98
[2019-08-15] MEDS ORDERED: Tetan/Diph/Pertus SYR(Tdap)* 0.5 ML SYR(BOOSTRIX) use SYR contains LATEX IM ONE (18:59)
[2019-08-15] MEDS ORDERED: Amoxicillin/Clavulanate TAB* 875 MG PO ONE (18:59)
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
== END 2019-08-15 19:30 | disposition home or self-care (01) ==
LOC: UCEAST 18:15
DX: S61.452A Open bite of left hand, initial encounter (principal); L08.9 Local infection of the skin and subcutaneous tissue, unspecified; I10 Essential (primary) hypertension; Z23 Encounter for immunization; Z88.8 Allergy status to other drugs, medicaments and biological substances; Z88.5 Allergy status to narcotic agent; Z79.899 Other long term (current) drug therapy; Z87.891 Personal history of nicotine dependence; W55.01XA Bitten by cat, initial encounter; Y92.9 Unspecified place or not applicable
CPT/HCPCS: 90471; 90715; 99213; A9270-GY; G0463